=== PATIENT | female | born 1985 | race African-American/Black ===

== ENCOUNTER 2024-02-05 23:51 | Outpatient (CLI) | payer BC, SELFPAY | END 2024-02-05 23:52 | disposition home or self-care (01) | LOC: AMB 02-12 06:30 | PROVIDERS: PCP Family Medicine; Visit Provider Student in an Organized Health Care Education/Training Program | DX: O26.899 Other specified pregnancy related conditions, unspecified trimester (principal); R10.9 Unspecified abdominal pain | CPT/HCPCS: A0425; A0427 ==